=== PATIENT | male | born 1955 | race Caucasian/White ===

== ENCOUNTER 2020-10-25 02:33 | Outpatient (CLI) | payer MEDICARE, SELFPAY ==
--- NOTE | 2020-10-25 07:45 | DI.CTLCSR_ITS ---
EXAM: CT CHEST LUNG CANCER SCREEN CLINICAL HISTORY: Screening for lung cancer,CURRENT SMOKER, F17.210. TECHNIQUE: Imaging Protocol: Low Dose Technique CONTRAST MATERIAL: None COMPARISON: No exams were available for comparison. no prior chest x-rays. FINDINGS: CHEST: LUNGS: There are multiple benign calcified granulomas in both lung schroeder.. There are mild increased markings in the lingular segment of the left lung. No pleural effusions. MEDIASTINUM: There are few small nonspecific lymph nodes in the anterior mediastinal fat. No gross h ilar nor mediastinal adenopathy noted. No axillary adenopathy. Visualized thyroid unremarkable. [place] retrocardiac hiatal hernia +dilated esophagus. CARDIAC: Sternotomy. Cardiomegaly. Pacemaker wires noted. Thoracic aorta is calcified but not enla rged. OTHER: There is bilateral moderate gynecomastia. OSSEOUS: No significant osseous lesions.. IMPRESSION: 1. Benign-appearing pulmonary findings as described above. No pleural effusions. 2. Cardiomegaly. Sternotomy. Cardiac pacemaker. No pulmonary edema. 3. Lung RADS Cat 2 - Benign Appearance / Behavior: Nodules with a very low likelihood of becoming a c linically active cancer due to size or lack of growth Lung-RADS 1.0 CATEGORIES: Category 0 - Prior chest CT exam(s) being located for comparison. Category 1 - Annual screening in 12 months. No nodules or definitely benign nodules. Category 2 - Annual screening in 12 months. Benign appearance. Nodules with low likelihood of becomin g active cancer. Category 3 - 6-month follow-up. Probably benign. Short-term follow-up suggested. Nodules with low lik elihood of becoming active cancer. Category 4A - 3-month follow-up and CT/PET if >8 mm in size. Suspicious finding. Findings which requi re additional testing. Category 4B - Findings which require additional testing and tissue sampling. Modifier S- Potentially clinically significant findings (non lung cancer) RADIATION DOSE DELIVERED: 108.08mGy.cm Total DLP 2.21mGy CTDIvol DATA REPOSITORY: All CT scans at this facility are submitted to the National Radiology Data Registry (NRDR) Dose Index Registry (DIR) with the [employer] ([employer]). RADIATION OPTIMIZATION: All CT scans at this facility use at least one of these dose optimization te chniques: automated exposure control; mA and/or kV adjustment per patient size (includes targeted exa ms where dose is matched to clinical indication); or iterative reconstruction.
== END 2020-10-25 02:53 ==
PROVIDERS: PCP Nurse Practitioner Family; Visit Provider Nurse Practitioner Family
DX: Z12.2 Encounter for screening for malignant neoplasm of respiratory organs (principal); F17.210 Nicotine dependence, cigarettes, uncomplicated; R91.8 Other nonspecific abnormal finding of lung field; Z95.0 Presence of cardiac pacemaker; K44.9 Diaphragmatic hernia without obstruction or gangrene
CPT/HCPCS: 71271

== ENCOUNTER → 2021-03-10 10:05 | Outpatient (BNVA) | payer MEDICARE, SELFPAY | PROVIDERS: PCP Nurse Practitioner Family; Referring Provider Nurse Practitioner Family; Visit Provider Physical Therapy Assistant | DX: Z12.11 Encounter for screening for malignant neoplasm of colon (principal) ==

== ENCOUNTER 2021-08-19 01:40 | Outpatient (CLI) | payer MEDICARE, SELFPAY ==
[2021-08-19 15:47] LABS: Hemoglobin A1C 7.7 % (<5.7)
[2021-08-19 16:43] LABS: ALT 62 U/L (16-63); AST 32 U/L (15-37); Albumin 3.5 g/dL (3.4-5.0); Alkaline Phosphatase 113 U/L (46-116); Anion Gap 12.5 mmol/L (3-11); BUN 18 mg/dL (7-18); Bilirubin, Total 0.3 mg/dL (0.2-1.0); CO2 24.5 mmol/L (21.0-32.0); CREATININE 1.5 mg/dL (0.70-1.30); Calcium 8.9 mg/dL (8.5-10.1); Calculated LDL 58 mg/dL (<100); Chloride 102 mmol/L (98-107); Cholesterol 174 mg/dL (<200); Estimated GFR 46.82 (mL/min/1.73m2); Glucose 292 mg/dL (74-106); HDL Cholesterol 47 mg/dL (40-60); Sodium 139 mmol/L (136-145); Total Protein 6.9 g/dL (6.4-8.2); Triglyceride 347 mg/dL (<150)
== END 2021-08-19 01:41 | disposition home or self-care (01) ==
LOC: LBO 01:40
PROVIDERS: PCP Nurse Practitioner Family; Visit Provider Nurse Practitioner Family
DX: E11.9 Type 2 diabetes mellitus without complications (principal); I25.10 Atherosclerotic heart disease of native coronary artery without angina pectoris
CPT/HCPCS: 36415; 80053; 80061; 83036

== ENCOUNTER → 2021-11-01 01:01 | Outpatient (CLI) | payer MEDICARE, SELFPAY ==
--- NOTE | 2021-11-01 08:00 | DI.CTLCSR_ITS ---
Exam(s) CT CHEST LUNG CANCER SCREEN EXAM: CT CHEST LUNG CANCER SCREEN CLINICAL HISTORY: Screening for lung cancer, current smoker, F17.210. TECHNIQUE: Imaging Protocol: Low Dose Technique CONTRAST MATERIAL: None COMPARISON: CT CT CHEST LUNG CANCER SCREEN from 10/25/2020 FINDINGS: CHEST: LUNGS: No new ominous pulmonary nodules.. The previously present small bilateral calcified granuloma s unchanged. Largest of these is lingular segment left lung millimeters. Mild markings lung schroeder are unchanged and remain benign appearance. There are no associated pleural effusions. No new signi ficant focal findings in the trachea and mainstem bronchi. MEDIASTINUM: Slightly prominent anterior mediastinal fat lymph nodes are again noted, exhibiting mini mal if any significant change. Small subcarinal lymph nodes are also noted. No gross hilar adenopat hy, realizing the limitations of a noninfused low-dose study. Large retrocardiac hiatal hernia again noted. CARDIAC: Cardiomegaly.Sternotomy wires. Pacemaker wires. No pericardial effusion. Caliber thoracic aorta is within normal limits. OTHER: Thickening of both adrenal glands is unchanged. Probable cholelithiasis. Somewhat cirrhotic appearing liver OSSEOUS: No significant osseous lesions.. IMPRESSION: 1. Stable appearance of the previously described benign-appearing lung findings. No new nodules nor pleural effusions. 2. Cardiomegaly. Sternotomy. Pacemaker. Pulmonary edema. 3. Lung RADS Cat 2 - Benign Appearance / Behavior: Nodules with a very low likelihood of becoming a c linically active cancer due to size or lack of growth Lung-RADS 1.0 CATEGORIES: Category 0 - Prior chest CT exam(s) being located for comparison. Category 1 - Annual screening in 12 months. No nodules or definitely benign nodules. Category 2 - Annual screening in 12 months. Benign appearance. Nodules with low likelihood of becomin g active cancer. Category 3 - 6-month follow-up. Probably benign. Short-term follow-up suggested. Nodules with low lik elihood of becoming active cancer. Category 4A - 3-month follow-up and CT/PET if >8 mm in size. Suspicious finding. Findings which requi re additional testing. Category 4B - Findings which require additional testing and tissue sampling. Category 4X - Category 3 or 4 nodules with additional features or imaging findings that increases the suspicion of malignancy. Modifier S- Potentially clinically significant findings (non lung cancer) RADIATION DOSE DELIVERED: 95.82mGy.cm Total DLP 2.21mGy CTDIvol DATA REPOSITORY: All CT scans at this facility are submitted to the National Radiology Data Registry (NRDR) Dose Index Registry (DIR) with the [employer] ([employer]). RADIATION OPTIMIZATION: All CT scans at this facility use at least one of these dose optimization te chniques: automated exposure control; mA and/or kV adjustment per patient size (includes targeted exa ms where dose is matched to clinical indication); or iterative reconstruction.
== END ==
PROVIDERS: PCP Nurse Practitioner Family; Visit Provider Nurse Practitioner Family
DX: Z12.2 Encounter for screening for malignant neoplasm of respiratory organs (principal); F17.210 Nicotine dependence, cigarettes, uncomplicated; J98.4 Other disorders of lung; R59.0 Localized enlarged lymph nodes; I51.7 Cardiomegaly; Z95.0 Presence of cardiac pacemaker
CPT/HCPCS: 71271

== ENCOUNTER 2021-11-02 03:06 | Outpatient (CLI) | payer MEDICARE, SELFPAY ==
[2021-11-02 10:04] LABS: HCT 42.9 % (40.0-50.0); HGB 13.4 g/dL (13.5-17.5); MCH 29.1 pg (27.0-33.0); MCHC 31.2 % (32.0-36.0); MCV 93.1 fL (80-95); MPV 9.9 fL (8.0-11.0); Platelet Count 211 10^3/uL (130-400); RBC 4.61 10^6/uL (4.36-5.78); RDW 15.3 % (11.8-14.1); RDW-SD 52.6 fL; WBC 10.39 10^3/uL (4.4-10.8)
[2021-11-02 10:11] LABS: Hemoglobin A1C 7.6 % (<5.7)
[2021-11-02 11:21] LABS: Folate 10.4 ng/mL (8.6-20.0); Vitamin B12 711 pg/mL (193-986)
[2021-11-02 22:48] LABS: PSA, Screening 0.2 ng/mL (<=4.5)
== END 2021-11-02 03:07 | disposition home or self-care (01) ==
LOC: LBO 03:06
PROVIDERS: PCP Nurse Practitioner Family; Visit Provider Nurse Practitioner Family
DX: E11.9 Type 2 diabetes mellitus without complications (principal); G62.9 Polyneuropathy, unspecified; Z12.5 Encounter for screening for malignant neoplasm of prostate
CPT/HCPCS: 36415; 84153; 85027; 82607; 82746; 83036